=== PATIENT | female | born 1960 | race Two or more races ===

== ENCOUNTER 2023-12-19 13:28 | Emergency (ER) | payer OTHER ==
[~2023-12-19] VITALS: Ht 144.8 cm; Wt 52.2 kg
[2023-12-19] MEDS ORDERED: KETOROLAC TROMETHAMINE 60 MG VIAL IM ONE ×2 (15:30→15:56)
[2023-12-19] MEDS ORDERED: ORPHENADRINE CITRATE 30 MG/ML AMPUL IM ONE (15:30)
[2023-12-19] MEDS ORDERED: CETIRIZINE HCL 5MG/5ML BLIST.PACK PO ONE (15:55)
[2023-12-19] MEDS ORDERED: ORPHENADRINE CITRATE 30 MG/ML AMPUL ONE (15:56)
== END 2023-12-19 17:04 | disposition home or self-care (01) ==
LOC: ER 13:30
DX: S89.82XA Other specified injuries of left lower leg, initial encounter (principal); W19.XXXA Unspecified fall, initial encounter; Y93.89 Activity, other specified; Y92.488 Other paved roadways as the place of occurrence of the external cause; Y99.8 Other external cause status